=== PATIENT | male | born 1980 | race Caucasian/White ===

== ENCOUNTER 2019-02-05 08:18 | Emergency (ER) | payer MEDICAID ==
[~2019-02-05] VITALS: Ht 188 cm; Wt 84.8 kg
[2019-02-05 08:30] VITALS: BP 127/70
--- NOTE | 2019-02-05 08:30 | NUR ---
ED Nurse Note: Patient was brought in to [facility] due to nausea/vomiting, handcuffed. Patient is alert and orientedx4, combative, noncompliant. Placed patient on ekg monitor tech. Patient vomitedx1, clear emesis, in ED. patient states that he was discharged from [facility] 4 days ago and has not been taking insulin for 3 days. on cardiac montior.
[2019-02-05] MEDS ORDERED: Insulin Human Regular 100units/ml 3ml IV ONE (08:45)
[2019-02-05 09:00] VITALS: BP 109/55
--- NOTE | 2019-02-05 09:01 | Emergency Room Report ---
History of Present Illness General Chief Complaint: Abnormal Labs Source: Patient Present Illness HPI Patient had initially contacted 911 upon arrival of the paramedics Patient had refused transfer to this facility refused to leave the ambulance And was requesting [facility] Police Department were contacted by the paramedics patient was brought in In handcuffs Yelling and screaming at the staff Reporting that he is in DKA He refused initial any triage from the staff And later was agreeable Here he complains of increased thirst Denies any chest pain or shortness of breath he does complain of increased nausea as well reports that he has not had any insulin since discharge from [facility] Allergies: Coded Allergies: No Known Allergies (Unverified , 02/05/19) Patient History Past Medical History: see triage record Reviewed Nursing Documentation: PMH: Agreed; PSxH: Agreed Nursing Documentation-PMH Hx Diabetes: Yes Review of Systems All Other Systems: negative except mentioned in HPI Physical Exam Vital Signs Date Time Temp Pulse Resp B/P (MAP) Pulse Ox O2 Delivery O2 Flow Rate FiO2 02/05/19 08:10 97.5 112 22 125/75 (92) 98 Room Air Sp02 EP Interpretation: reviewed, normal General Appearance: well appearing, no apparent distress - In the ambulance bay initially patient was agitated aggressive, cursing at the staff, at bedside now the patient is calm and appropriate Head: normocephalic, atraumatic Eyes: bilateral eye PERRL, bilateral eye EOMI ENT: hearing grossly normal, normal pharynx, TMs + canals normal, uvula midline Neck: full range of motion, supple, no meningismus, no bony tend Respiratory: lungs clear, normal breath sounds, no rhonchi, no respiratory distress, no retraction, no accessory muscle use Cardiovascular #1: normal peripheral pulses, regular rate, rhythm, no edema, no gallop, no JVD, no murmur Gastrointestinal: normal bowel sounds, non tender, soft, no mass, no organomegaly, non-distended, no guarding, no hernia, no pulsatile mass, no rebound Musculoskeletal: normal inspection Neurologic: oriented x3, responsive, end packer III-XII nml as tested, motor strength/ tone normal, sensory intact Psychiatric: mood/affect normal Skin: no rash Lymphatic: normal inspection, no adenopathy Procedures Critical Care Time Critical Care Time 40 minutes for multiple re-evaluations critical findings requiring acute intervention not including any procedural time Medical Decision Making Diagnostic Impression: Primary Impression: DKA (diabetic ketoacidoses) ER Course Given the patient's history and presentation multiple differentials and consideration including but not limited to DKA, hyperglycemia, HONK, infectious etiology Patient does report that he has been noncompliant with medications over the past several days ever since his discharge from [facility] Here the patient had extensive blood work initiated along with Acute intervention including hydration and insulin Patient's glucose level on the chemistry is significantly high The CO2 is normal however the anion gap is elevated Patient meets criteria for early signs of DKA and requires aggressive hydration and insulin drip Also admitted to ICU for further care As the patient was initiating further work-up in the ER He became again verbally abusive physically threatening to staff, states that he wants to 'get the f' out of here' Patient also continues to call me the 'n word' And repeatedly requesting to be let go Patient is fully awake and alert speaking clearly has full decision-making capacity And understands that leaving at this time can lead to worsening symptoms possible hyperglycemic coma and possible and patient is leaving AGAINST MEDICAL ADVICE Labs Test 02/05/19 08:30 02/05/19 08:51 02/05/19 10:07 White Blood Count 6.3 K/UL (4.8-10.8) Red Blood Count 4.86 M/UL (4.70-6.10) Hemoglobin 14.0 G/DL (14.2-18.0) Hematocrit 44.6 % (42.0-52.0) Mean Corpuscular Volume 92 FL (80-99) Mean Corpuscular Hemoglobin 28.8 PG (27.0-31.0) Mean Corpuscular Hemoglobin Concent 31.4 G/DL (32.0-36.0) Red Cell Distribution Width 13.3 % (11.6-14.8) Platelet Count 411 K/UL (150-450) Mean Platelet Volume 5.9 FL (6.5-10.1) Neutrophils (%) (Auto) 73.3 % (45.0-75.0) Lymphocytes (%) (Auto) 18.4 % (20.0-45.0) Monocytes (%) (Auto) 4.6 % (1.0-10.0) Eosinophils (%) (Auto) 1.6 % (0.0-3.0) Basophils (%) (Auto) 2.1 % (0.0-2.0) Urine Color Pale yellow Urine Appearance Clear Urine pH 5 (4.5-8.0) Urine Specific [place] 1.010 (1.005-1.035) Urine Protein Negative (NEGATIVE) Urine Glucose (UA) 4+ (NEGATIVE) Urine Ketones 4+ (NEGATIVE) Urine Blood Negative (NEGATIVE) Urine Nitrite Negative (NEGATIVE) Urine Bilirubin Negative (NEGATIVE) Urine Urobilinogen Normal MG/DL (0.0-1.0) Urine Leukocyte Esterase Negative (NEGATIVE) Urine RBC 0-2 /HPF (0 - 0) Urine WBC 0-2 /HPF (0 - 0) Urine Squamous Epithelial Cells Occasional /LPF Urine Bacteria Occasional /HPF (NONE) Sodium Level 136 MMOL/L (136-145) Potassium Level 4.9 MMOL/L (3.5-5.1) Chloride Level 94 MMOL/L (98-107) Carbon Dioxide Level 22 MMOL/L (21-32) Anion Gap 20 mmol/L (5-15) Blood Urea Nitrogen 21 mg/dL (7-18) Creatinine 1.3 MG/DL (0.55-1.30) Estimat Glomerular Filtration Rate > 60 mL/min (>60) Glucose Level 824 MG/DL (74-106) Calcium Level 10.0 MG/DL (8.5-10.1) Total Bilirubin 0.7 MG/DL (0.2-1.0) Aspartate Amino Transf (AST/SGOT) 23 U/L (15-37) Alanine Aminotransferase (ALT/SGPT) 46 U/L (12-78) Alkaline Phosphatase 98 U/L (46-116) Total Protein 8.4 G/DL (6.4-8.2) Albumin 4.3 G/DL (3.4-5.0) Globulin 4.1 g/dL Albumin/Globulin Ratio 1.0 (1.0-2.7) Venous Blood pH 7.295 Venous Blood Partial Pressure CO2 38.5 Venous Blood Partial Pressure O2 52.4 Venous Blood HCO3 18.3 Venous Blood Base Excess -7.6 Urine Opiates Screen Negative (NEGATIVE) Urine Barbiturates Screen Negative (NEGATIVE) Phencyclidine (PCP) Screen Negative (NEGATIVE) Urine Amphetamines Screen Negative (NEGATIVE) Urine Benzodiazepines Screen Negative (NEGATIVE) Urine Cocaine Screen Negative (NEGATIVE) Urine Marijuana (THC) Screen Positive (NEGATIVE) Rhythm Strip Diag. Results EP Interpretation: yes Rate: 88 Rhythm: NSR, no PVC's, no ectopy Last Vital Signs Date Time Temp Pulse Resp B/P (MAP) Pulse Ox O2 Delivery O2 Flow Rate FiO2 02/05/19 08:10 97.5 112 22 125/75 (92) 98 Room Air Status: improved Disposition: AGAINST MEDICAL ADVICE Condition: Serious Referrals: NOT CHOSEN IPA/,REFERRING (PCP) Mich Rock DO Feb 05, 2019 09:01
[2019-02-05 09:03] LABS: APPEARANCE,URINE CLEAR; BILIRUBIN, URINE NEGATIVE (NEGATIVE); COLOR,URINE PALE YELLOW; GLUCOSE, URINE (UA) 4+ (NEGATIVE); KETONES,URINE 4+ (NEGATIVE); LEUKOCYTE ESTERASE ,URINE NEGATIVE (NEGATIVE); NITRITE,URINE NEGATIVE (NEGATIVE); PH,URINE 5 (4.5-8.0); PROTEIN,URINE NEGATIVE (NEGATIVE); UROBILINOGEN,URINE NORMAL MG/DL (0.0-1.0)
[2019-02-05 09:19] LABS: BASOPHILS % (AUTO) 2.1 % (0.0-2.0); EOSINOPHILS % (AUTO) 1.6 % (0.0-3.0); HEMATOCRIT 44.6 % (42.0-52.0); LYMPHOCYTES % (AUTO) 18.4 % (20.0-45.0); MEAN CORPUSCULAR VOLUME 92 FL (80-99); MONOCYTES % (AUTO) 4.6 % (1.0-10.0); NEUTROPHILS % (AUTO) 73.3 % (45.0-75.0); PLATELET COUNT 411 K/UL (150-450); RED BLOOD COUNT 4.86 M/UL (4.70-6.10); RED CELL DISTRIBUTION WIDTH 13.3 % (11.6-14.8); WHITE BLOOD COUNT 6.3 K/UL (4.8-10.8)
--- NOTE | 2019-02-05 09:22 | NUR ---
ED Nurse Note: [place] shows high BS after 14unit R insulin and 1L NS. Notified Dr. Rock.
[2019-02-05 09:25] LABS: ALANINE AMINOTRANSFERASE 46 U/L (12-78); ALBUMIN 4.3 G/DL (3.4-5.0); ALKALINE PHOSPHATASE 98 U/L (46-116); ANION GAP 20 mmol/L (5-15); ASPARTATE AMINO TRANSFERASE 23 U/L (15-37); BILIRUBIN,TOTAL 0.7 MG/DL (0.2-1.0); BLOOD UREA NITROGEN 21 mg/dL (7-18); CARBON DIOXIDE 22 MMOL/L (21-32); CHLORIDE 94 MMOL/L (98-107); CREATININE 1.3 MG/DL (0.55-1.30); POTASSIUM 4.9 MMOL/L (3.5-5.1); SODIUM 136 MMOL/L (136-145)
[2019-02-05 10:00] VITALS: BP 110/64
[2019-02-05 10:45] VITALS: BP 110/60
[2019-02-05] MEDS ORDERED: NS w/KCl 20mEq 1000ml 1,000 ML IV ONE (10:45)
--- NOTE | 2019-02-05 10:56 | NUR ---
ED Nurse Note: removed IV from pt's Rt arm per ERMD's verbal order.
--- NOTE | 2019-02-05 11:06 | NUR ---
AMA: Patient left against medical advice. Patient aox4, able to make his own decisions, ambulatory with steady gait. Risks of leaving AMA including explained to the patient. patient verbalized understanding, but refused to sign AMA form. Dr. Rock at bedside. All belongings given back to the patient. SEE AMA FORM.
[2019-02-05] MEDS ORDERED: Heparin 5000 units/ml inj SUBQ SCH (14:00)
--- NOTE | 2019-02-05 19:45 | History & Physical ---
History and Physical History & Physicial I was called for admission for this patient who presented with diabetic ketoacidosis. Patient had a blood sugar of 824 and anion gap of 20 and a pH of 7.29. He had 4+ ketones in the urine. 35 minutes spent reviewing chart, discussing with ER doctor on plan of care including admission to ICU, insulin drip, IV fluids, electrolyte monitoring and correction. Upon arrival to the emergency room the patient had already left AGAINST MEDICAL ADVICE. This caption writer did not have an opportunity to interview the patient at any point. Time of note may not reflect time that the attempt was made to see patient. Arturo Moralez D.O. Feb 05, 2019 19:45
== END 2019-02-05 11:14 | disposition left against medical advice (07) ==
LOC: EDBD 08:18 → EMR 08:35 → CANBEDREQ 11:05 → EMR 11:14
DX: E11.10 Type 2 diabetes mellitus with ketoacidosis without coma (principal)
CPT/HCPCS: 36415; 80053; 80307; 81001; 85025; 96361; 96365; 96375; J1815; J1817; J2405; Z7502; 99284; J7030